=== PATIENT | female | born 1980 | race Caucasian/White ===

== ENCOUNTER 2017-05-26 17:09 | Emergency (ER) | payer SELFPAY ==
[~2017-05-26] VITALS: Ht 162.6 cm; Wt 64.0 kg
[2017-05-26] MEDS ORDERED: SODIUM CHLORIDE 0.9% 1,000 ML IV SCH (18:25)
[2017-05-26] MEDS ORDERED: METHYLPREDNISOLONE SOD SUCC 125 MG/2 ML VIAL IV ONE (18:30)
[2017-05-26] MEDS ORDERED: ONDANSETRON HCL 4MG/2ML VIAL IV ONE (18:30)
[2017-05-26] MEDS ORDERED: DIPHENHYDRAMINE 50MG/ML VIAL IV ONE (18:30)
[2017-05-26] MEDS ORDERED: EPINEPHRINE 1:1000 1 MG/ML AMP IM ONE (18:30)
[2017-05-26] MEDS ORDERED: FAMOTIDINE 20MG/2ML VIAL IV ONE (18:30)
[2017-05-26 18:51] LABS: BASOPHILS % 0.1 % (0.0-2.0); EOSINOPHILS % 0.2 % (0.0-5.0); HEMATOCRIT. 41.6 % (36.0-48.0); HEMOGLOBIN. 14.3 g/dL (12.0-16.0); LYMPHOCYTES % 10.6 % (20.0-50.0); MEAN CORPUSCULAR VOLUME 92.8 fL (81.0-99.0); MEAN PLATELET VOLUME 7.8 fl (7.4-10.4); NEUTROPHILS % 87.1 % (40.0-76.0); PLATELET 333 x1000/uL (130-400); RED BLOOD CELL COUNT 4.48 mill/uL (4.2-5.4)
[2017-05-26 18:55] LABS: CHLORIDE 105 mEq/L (98-107)
[2017-05-26 19:04] LABS: HCG SCREEN NEGATIVE
[2017-05-26] MEDS: ALBUTEROL (0.083%) 2.5MG/3ML NEB HHN SCH ×2 (19:08→19:26)
[2017-05-26 20:12] VITALS: BP 124/77
== END 2017-05-26 20:40 | disposition home or self-care (01) ==
LOC: ER 17:21
DX: L50.0 Allergic urticaria (principal); R00.0 Tachycardia, unspecified; Z98.890 Other specified postprocedural states
CPT/HCPCS: 36415; 80053; 84703; 85025; 93005; 96361; 96372; 96374; 96375; 99285; J0171; J1200; J2405; J2930; J3490; J7030; J7611; Z7610

== ENCOUNTER 2019-01-28 00:09 | Emergency (ER) | payer OTHER ==
[~2019-01-28] VITALS: Ht 162.6 cm; Wt 73.0 kg
[2019-01-28] MEDS ORDERED: IBUPROFEN 600MG TABLET PO ONE (01:00)
[2019-01-28 02:39] VITALS: BP 119/68
== END 2019-01-28 02:40 | disposition home or self-care (01) ==
LOC: ER 00:09
DX: S90.32XA Contusion of left foot, initial encounter (principal); W20.8XXA Other cause of strike by thrown, projected or falling object, initial encounter; Y93.89 Activity, other specified; Y92.89 Other specified places as the place of occurrence of the external cause
CPT/HCPCS: 73630; 99283